=== PATIENT | female | born 1990 | race Two or more races ===

== ENCOUNTER 2020-05-14 12:13 | Inpatient (IN) | payer OTHER ==
[~2020-05-14] VITALS: Ht 152.4 cm; Wt 73.9 kg
[2020-05-27] MEDS ORDERED: ZOLOFT25 MG PO (13:56)
[2020-05-27] MEDS ORDERED: CLONAZEPAM0.5 MG PO (13:58)
[2020-05-27] MEDS ORDERED: PRENATAL TABLE1 EAC1 PO (13:59)
[2020-05-30] MEDS ORDERED: KETO10TA2 PO (07:49)
[2020-05-30] MEDS ORDERED: OXYC1TAB9 PO (07:49)
== END 2020-05-30 15:01 | disposition home or self-care (01) | DRG 788 ==
LOC: OB/GYN 05-27 12:30 → LDR 05-27 12:45 → OB/GYN 05-28 18:16
PROVIDERS: ADMIT Obstetrics & Gynecology; ATTEND Obstetrics & Gynecology
PROC: 4A0HXFZ Measurement of Products of Conception, Cardiac Rhythm, External Approach (ICD-10-PCS; 2020-05-27)
PROC: 10D00Z1 Extraction of Products of Conception, Low, Open Approach (ICD-10-PCS; principal; 2020-05-28 17:00)
DX: O82 Encounter for cesarean delivery without indication (principal); O62.0 Primary inadequate contractions; Z3A.39 39 weeks gestation of pregnancy; Z37.0 Single live birth

== ENCOUNTER 2020-05-21 14:01 | Outpatient (CLI) | payer OTHER | END 2020-05-21 14:45 | disposition home or self-care (01) | LOC: NST 14:01 | PROVIDERS: ATTEND Obstetrics & Gynecology Maternal & Fetal Medicine | DX: Z34.83 Encounter for supervision of other normal pregnancy, third trimester (principal) ==

== ENCOUNTER 2020-05-24 11:08 | Outpatient (CLI) | payer OTHER | END 2020-05-24 12:28 | disposition home or self-care (01) | LOC: NST 11:08 | PROVIDERS: ATTEND Obstetrics & Gynecology | DX: Z34.83 Encounter for supervision of other normal pregnancy, third trimester (principal) ==